=== PATIENT | female | born 1965 | race Caucasian/White ===

== ENCOUNTER 2016-11-03 10:47 | Emergency (ER) | payer OTHER ==
[2016-11-03 10:55] VITALS: BP 150/93; PULSE 77; RESP 18; TEMP 97.8
[2016-11-03] MEDS ORDERED: TRIAMCINOLONE 0.1% CREAM 80 GM TUBE TOPICAL STA (11:08)
[2016-11-03] MEDS ORDERED: predniSONE 50 MG TAB PO STA (11:09)
[2016-11-03] MEDS ORDERED: diphenhydrAMINE 50 MG CAP PO STA (11:09)
--- NOTE | 2016-11-03 11:12 | ED ---
Skin/Abscess/FB HPI - General Chief complaint: Skin/Abscess/Foreign Body Stated complaint: Rash Time Seen by Provider: 11/03/16 11:05 Source: patient, RN notes reviewed Mode of arrival: ambulatory Limitations: no limitations - History of Present Illness Initial comments: 51-year-old female presents emergency Department chief complaint rash on her right wrist region. Patient states this started last few minutes. Patient states she has no other areas she states it is very itchy, tight feeling. Patient states she has known drug ALLERGIES to lisinopril. Patient denies any new soaps or lotions or detergents. Patient states that it started while she was sitting in the emergency Department with her granddaughter. Patient offers no other complaints. She denies shortness of breath or difficulty swallowing. - Related Data Home Medications Medication Instructions Recorded Confirmed Amitriptyline HCl [Elavil] 50 mg PO HS 07/20/16 11/03/16 Atorvastatin [Lipitor] 10 mg PO DAILY 07/20/16 11/03/16 Cyclobenzaprine [Flexeril] 10 mg PO BID 07/20/16 11/03/16 Furosemide [Lasix] 40 mg PO DAILY 07/20/16 11/03/16 Gabapentin [Neurontin] 300 mg PO HS 07/20/16 11/03/16 Levothyroxine Sodium [Synthroid] 100 mcg PO DAILY 07/20/16 11/03/16 PARoxetine [Paxil] 10 mg PO HS 07/20/16 11/03/16 QUEtiapine [SEROquel] 25 mg PO HS 07/20/16 11/03/16 metFORMIN HCL [Glucophage] 500 mg PO DAILY 07/20/16 11/03/16 Albuterol Inhaler [Ventolin Hfa 1 - 2 puff INHALATION RT-QID PRN 07/21/16 Inhaler] PARoxetine HCL [Paxil] 40 mg PO QAM 07/21/16 11/03/16 Ergocalciferol (Vitamin D2) 50,000 unit PO QMONTH 11/03/16 11/03/16 [Vitamin D2] Glimepiride [Amaryl] 1 mg PO [id number] 11/03/16 11/03/16 Ibuprofen [Motrin] 800 mg PO Q6HR PRN 11/03/16 11/03/16 Previous Rx's Medication Instructions Recorded Triamcinolone 0.1% Cream [Kenalog] 1 applicatio TOPICAL BID #15 gram 11/03/16 Allergies Allergy/AdvReac Type Severity Reaction Status Date / Time lisinopril AdvReac Cough Verified 11/03/16 11:05 Review of Systems ROS Statement: Those systems with pertinent positive or pertinent negative responses have been documented in the HPI. ROS Other: All systems not noted in ROS Statement are negative. Past Medical History Past Medical History: Asthma, Diabetes Mellitus, Hypertension, Thyroid Disorder History of Any Multi-Drug Resistant Organisms: None Reported Past Surgical History: Bladder Surgery, Hysterectomy Additional Past Surgical History / Comment(s): thyroid removed, ACL, eye surgery , teeth removed Past Psychological History: Anxiety, Depression Smoking Status: Current every day smoker Past Alcohol Use History: None Reported Past Drug Use History: None Reported General Exam Limitations: no limitations General appearance: alert, in no apparent distress Head exam: Present: atraumatic, normocephalic, normal inspection ENT exam: Present: normal oropharynx Respiratory exam: Present: normal lung sounds bilaterally. Absent: respiratory distress, wheezes, rales, rhonchi, stridor Cardiovascular Exam: Present: regular rate, normal rhythm, normal heart sounds. Absent: systolic murmur, diastolic murmur, rubs, gallop, clicks Skin exam: Present: rash (Right wrist dorsal aspect region there is erythematous macular rash that appears to be consistent with contact dermatitis or some urticaria) Course Vital Signs 11/03/16 10:49 Temperature 97.8 F Pulse Rate 77 Respiratory 18 Rate Blood Pressure 150/93 O2 Sat by Pulse 97 Oximetry Medical Decision Making - Medical Decision Making 51-year-old female presented emergency department for rash or right wrist. Patient has contact dermatitis. Patient was treated with steroid creams, Benadryl. Return parameters were discussed. Disposition Clinical Impression: Contact dermatitis Disposition: HOME SELF-CARE Condition: Stable Instructions: Contact Dermatitis (ED) Additional Instructions: Please return to the Emergency Department if symptoms worsen or any other concerns. Prescriptions: Triamcinolone 0.1% Cream [Kenalog] 1 applicatio TOPICAL BID #15 gram Time of Disposition: 11:12
== END 2016-11-03 11:22 | disposition home or self-care (01) ==
LOC: EC 10:47
DX: L25.9 Unspecified contact dermatitis, unspecified cause (principal); J45.909 Unspecified asthma, uncomplicated; E11.9 Type 2 diabetes mellitus without complications; I10 Essential (primary) hypertension; E07.9 Disorder of thyroid, unspecified; F41.9 Anxiety disorder, unspecified; F32.9 Major depressive disorder, single episode, unspecified; F17.200 Nicotine dependence, unspecified, uncomplicated; Z79.84 Long term (current) use of oral hypoglycemic drugs; Z79.899 Other long term (current) drug therapy; Z88.8 Allergy status to other drugs, medicaments and biological substances
CPT/HCPCS: 99282; J7512